=== PATIENT | female | born 2000 | race Two or more races ===

== ENCOUNTER 2022-02-23 10:00 | Inpatient (IN) | payer OTHER ==
[~2022-02-23] VITALS: Ht 170.2 cm; Wt 85.3 kg
[2022-02-23] MEDS ORDERED: PRENATAL CAPLE1 EAC1 PO (11:07)
[2022-02-25] MEDS ORDERED: SIMETHICONE125 M1 PO (07:11)
[2022-02-25] MEDS ORDERED: SENOKOT8.6 M1 PO (07:11)
[2022-02-25] MEDS ORDERED: IBUPROFEN800 MG PO (07:11)
== END 2022-02-25 12:31 | disposition home or self-care (01) | DRG 788 ==
LOC: LDR 10:00 → SURG-SUITE 10:00 → OB/GYN 19:39 → SURG-SUITE 02-24 09:13
PROVIDERS: ADMIT Obstetrics & Gynecology; ATTEND Obstetrics & Gynecology
PROC: 4A1HXCZ Monitoring of Products of Conception, Cardiac Rate, External Approach (ICD-10-PCS; 2022-02-23)
PROC: 10D00Z1 Extraction of Products of Conception, Low, Open Approach (ICD-10-PCS; principal; 2022-02-23 17:30)
DX: O62.1 Secondary uterine inertia (principal); Z3A.39 39 weeks gestation of pregnancy; Z37.0 Single live birth; Z20.822 Contact with and (suspected) exposure to COVID-19